=== PATIENT | female | born 1950 | race Caucasian/White ===

== ENCOUNTER → 2017-01-13 | Outpatient (CLI) | payer MEDICARE ==
--- NOTE | 2017-01-13 11:49 | MM ---
Reason for exam: additional evaluation requested from prior study. Last mammogram was performed 1 year ago. History: Patient is postmenopausal, has history of breast cancer at age 49, and had first child at age 31. Family history of breast cancer in maternal aunt. Malignant excisional biopsy of the left breast, January 23, 1999. Malignant excisional biopsy of the right breast, January 23, 1999. Mastectomy of both breasts, 1998. TRAM Reconstruction, 1998. Excisional biopsy of the right breast. Chemotherapy. Taking antineoplastic for 5 years 8 months beginning at age 51. Took other hormone for 5 years beginning at age 50. Physical Findings: Nurse did not find any significant physical abnormalities on exam. MG 3D Diag Mammo W/Cad TRINA Bilateral CC and MLO view(s) were taken. Prior study comparison: January 12, 2016, bilateral MG 3d diag mammo w/cad TRINA. December 25, 2014, bilateral MG diagnostic mammo w CAD TRINA. The breast tissue is almost entirely fat. There is no discrete abnormality. No significant new findings when compared with previous films. ASSESSMENT: Negative, BI-RAD 1 RECOMMENDATION: Follow-up diagnostic mammogram of both breasts in 1 year.
== END | disposition home or self-care (01) ==
LOC: RADMAMWWP 11:03
PROVIDERS: ATTEND Internal Medicine Hematology & Oncology
DX: Z85.3 Personal history of malignant neoplasm of breast (principal)
CPT/HCPCS: G0204; G0279

== ENCOUNTER 2017-07-13 08:41 | Day surgery (SDC) | payer MEDICARE ==
[2017-07-11 10:34] VITALS: BMI 31.8
[~2017-07-13 08:41] MED LIST: LACTATED RINGERS 1,000 ML IV SCH; LIDOCAINE 1% 20 ML VIAL (10MG/ML) FOR IV START INTRADERMA PRN
[2017-07-13 09:04] VITALS: TEMP 97.7
[2017-07-13] MEDS ORDERED: LIDOCAINE 1% INJ 10MG/ML (20 ML MDV) ONE (09:21)
[2017-07-13] MEDS ORDERED: PROPOFOL 10 MG/ML 20 ML VIAL IV ONE (09:21)
--- NOTE | 2017-07-13 09:41 | P.PCN ---
Date of Procedure: 07/13/17 Procedure(s) Performed: BRIEF HISTORY: Patient is a 67-year-old, pleasant, white female, scheduled for an upper endoscopy as a part of evaluation of intermittent dysphagia to solids for the last 1 year duration. She often has food getting stuck in the throat area that happens once every 2-3 months. She does have GERD and his symptoms occasionally.. PROCEDURE PERFORMED: Esophagogastroduodenoscopy with biopsy and dilation PREOPERATIVE DIAGNOSIS: Intermittent dysphagia to solids of 1 year duration. IV sedation per anesthesia. PROCEDURE: After informed consent was obtained, the patient was brought into the endoscopy unit. IV sedation was administered by Anesthesia under continuous monitoring. Initially the Olympus GIF-140 video endoscope was inserted into the mouth. Esophagus intubated without any difficulty. It was gradually advanced into the stomach and duodenum and carefully examined. The bulb and the second part of the duodenum appeared normal. The scope at this time was withdrawn to the stomach, adequately insufflated with air, and upon careful examination, mucosa of the antrum,patchy areas of erythema and biopsies were done from this area. The body, cardia and the fundus appeared normal. The scope was then withdrawn into the esophagus. The GE junction was located at 39 cm from the incisors. small sliding Hiatal hernia noted. there was a distal esophageal Schatzki's ring identified which was widely patent and this was dilated using 18 -20 mm balloon in sequential fashion for 90 seconds. There were 2 small polyps measuring 5 mm in size at the GE junction that was biopsied. 2 superficial erosions noted at the GE junction consistent with LA grade B reflux esophagitis.The rest of theesophagus appeared normal.and the patient tolerated the procedure well. IMPRESSION: 1. Distal esophageal Schatzki's ring status post balloon dilation using 18-20 mm TTS balloon as described above. 2. 2 small GE junction polyps status post biopsy, and LA grade B reflux esophagitis. 3. Mild antral gastritis RECOMMENDATIONS: The findings of this examination were discussed with the patient as well as her family. She was advised to remain on clear liquid diet for lunch today. She'll be started on Prilosec 20 mg daily for 8 weeks. She' ll be seen in the office in 2 months.
[2017-07-13 09:56] VITALS: RESP 18
[2017-07-13 10:09] VITALS: BP 103/70; PULSE 65
== END 2017-07-13 10:38 | disposition home or self-care (01) ==
LOC: ORWHC2ENDO 08:41
PROVIDERS: ATTEND Internal Medicine Gastroenterology
DX: K22.2 Esophageal obstruction (principal); K29.60 Other gastritis without bleeding; K21.0 Gastro-esophageal reflux disease with esophagitis; K44.9 Diaphragmatic hernia without obstruction or gangrene; I10 Essential (primary) hypertension; E78.5 Hyperlipidemia, unspecified; Z79.899 Other long term (current) drug therapy; Z88.1 Allergy status to other antibiotic agents
CPT/HCPCS: 88305; 88342; 43239; 43249; J2001; J2704; C1726

== ENCOUNTER → 2018-01-26 | Outpatient (CLI) | payer MEDICARE ==
--- NOTE | 2018-01-26 14:34 | MM ---
Reason for exam: additional evaluation requested from prior study. Last mammogram was performed 1 year ago. History: Patient is postmenopausal, has history of breast cancer at age 49, and had first child at age 31. Family history of breast cancer in maternal aunt. Malignant excisional biopsy of the left breast, January 23, 1999. Malignant excisional biopsy of the right breast, January 23, 1999. Mastectomy of both breasts, 1998. TRAM Reconstruction, 1998. Excisional biopsy of the right breast. Chemotherapy. Taking antineoplastic for 5 years 8 months beginning at age 51. Took other hormone for 5 years beginning at age 50. Physical Findings: Nurse did not find any significant physical abnormalities on exam. MG 3D Diag Mammo W/Cad TRINA Bilateral CC and MLO view(s) were taken. Prior study comparison: January 13, 2017, bilateral MG 3d diag mammo w/cad TRINA. January 12, 2016, bilateral MG 3d diag mammo w/cad TRINA. The breast tissue is almost entirely fat. No descrete abnormality. No significant new findings when compared with previous films. These results were verbally communicated with the patient and result sheet given to the patient on 01/26/18. ASSESSMENT: Negative, BI-RAD 1 RECOMMENDATION: Follow-up diagnostic mammogram of both breasts in 1 year.
== END | disposition home or self-care (01) ==
LOC: RADMAMWWP 10:34
PROVIDERS: ATTEND Internal Medicine Hematology & Oncology
DX: Z08 Encounter for follow-up examination after completed treatment for malignant neoplasm (principal); Z85.3 Personal history of malignant neoplasm of breast
CPT/HCPCS: 77066; G0279; 77062

== ENCOUNTER → 2018-04-11 | Outpatient (CLI) | payer MEDICARE ==
[2018-04-11 13:51] LABS: Albumin 4.3 g/dL (3.5-5.0); Calcium 9.6 mg/dL (8.4-10.2); Potassium 4.7 mmol/L (3.5-5.1); Total Bilirubin 1.7 mg/dL (0.2-1.3); Total Protein 7.1 g/dL (6.3-8.2)
[2018-04-11 14:26] LABS: Basophils # (A) 0.1 k/uL (0-0.2); Basophils % (A) 1 %; Eosinophils # (A) 0.1 k/uL (0-0.7); Eosinophils % (A) 3 %; HCT 41.5 % (34.0-46.0); HGB 13.7 gm/dL (11.4-16.0); Lymphocytes # (A) 0.9 k/uL (1.0-4.8); Lymphocytes % (A) 21 %; MCH 30.5 pg (25.0-35.0); MCV 92.5 fL (80.0-100.0); Mean Platelet Volume 7.1; Monocytes # (A) 0.2 k/uL (0-1.0); Monocytes % (A) 5 %; Neutrophils % (A) 67 %; Platelet Count 219 k/uL (150-450); RBC 4.49 m/uL (3.80-5.40); RDW 13.7 % (11.5-15.5); WBC 4.5 k/uL (3.8-10.6)
== END | disposition home or self-care (01) ==
LOC: LABWHC1 12:08
PROVIDERS: ATTEND Family Medicine
DX: E78.5 Hyperlipidemia, unspecified (principal); I10 Essential (primary) hypertension; E21.5 Disorder of parathyroid gland, unspecified; Z11.59 Encounter for screening for other viral diseases
CPT/HCPCS: 36415; 80053; 80061; 84443; 85025; 86803

== ENCOUNTER → 2018-07-06 | Outpatient (CLI) | payer MEDICARE ==
[2018-07-06 17:23] LABS: Anion Gap 9.5 mmol/L (4.00-12.00); Calcium 9.7 mg/dL (8.7-10.3); Carbon Dioxide 23.5 mmol/L (21.6-31.8); Potassium 4.4 mmol/L (3.5-5.5)
== END | disposition home or self-care (01) ==
LOC: LABWHC1 11:21
PROVIDERS: ATTEND Family Medicine
DX: I10 Essential (primary) hypertension (principal)
CPT/HCPCS: 36415; 80048

== ENCOUNTER → 2019-01-09 | Outpatient (CLI) | payer MEDICARE ==
[2019-01-09 12:28] LABS: Basophils # (A) 0.1 k/uL (0-0.2); Basophils % (A) 1 %; Eosinophils # (A) 0.1 k/uL (0-0.7); Eosinophils % (A) 2 %; HCT 39.8 % (34.0-46.0); HGB 13.1 gm/dL (11.4-16.0); Lymphocytes # (A) 1.2 k/uL (1.0-4.8); Lymphocytes % (A) 19 %; MCH 30.1 pg (25.0-35.0); MCHC 32.9 g/dL (31.0-37.0); MCV 91.3 fL (80.0-100.0); Monocytes # (A) 0.3 k/uL (0-1.0); Monocytes % (A) 5 %; Neutrophils # (A) 4.7 k/uL (1.3-7.7); Neutrophils % (A) 72 %; Platelet Count 252 k/uL (150-450); RBC 4.36 m/uL (3.80-5.40); RDW 12.8 % (11.5-15.5); WBC 6.6 k/uL (3.8-10.6)
[2019-01-09 18:31] LABS: African American GFR (CKD) 48.8 (60.0-200.0); Albumin 4.8 g/dL (3.80-4.90); Albumin/Globulin Ratio 2.53 (1.60-3.17); Anion Gap 9.8 mmol/L (4.00-12.00); BUN/Creat Ratio 25.38 Ratio (12.00-20.00); Calcium 10.6 mg/dL (8.7-10.3); Carbon Dioxide 22.2 mmol/L (21.6-31.8); Globulin 1.9 g/dL (1.6-3.3); LDL Cholesterol,Calculated 62.8 mg/dL (0.0-131.0); Potassium 4.7 mmol/L (3.5-5.5); Total Bilirubin 1.2 mg/dL (0.2-1.2); Total Protein 6.7 g/dL (6.2-8.2); VLDL Calculation 40.2 mg/dL (5.00-40.00)
== END | disposition home or self-care (01) ==
LOC: LABWHC1 11:35
PROVIDERS: ATTEND Family Medicine
DX: I10 Essential (primary) hypertension (principal)
CPT/HCPCS: 36415; 80053; 80061; 84443; 85025

== ENCOUNTER → 2019-02-16 | Outpatient (CLI) | payer MEDICARE | END | disposition home or self-care (01) | LOC: LABWHC1 14:09 | PROVIDERS: ATTEND Family Medicine | DX: E21.3 Hyperparathyroidism, unspecified (principal) | CPT/HCPCS: 36415; 82330; 83970 ==

== ENCOUNTER → 2019-02-19 | Outpatient (CLI) | payer MEDICARE ==
--- NOTE | 2019-02-19 14:15 | MM ---
Reason for exam: additional evaluation requested from prior study. Last mammogram was performed 1 year and 1 month ago. History: Patient is postmenopausal, has history of breast cancer at age 49, and had first child at age 31. Family history of breast cancer in maternal aunt. Malignant excisional biopsy of the left breast, January 23, 1999. Malignant excisional biopsy of the right breast, January 23, 1999. Mastectomy of both breasts, 1998. TRAM Reconstruction, 1998. Excisional biopsy of the right breast. Chemotherapy. Taking antineoplastic for 5 years 8 months beginning at age 51. Took other hormone for 5 years beginning at age 50. Physical Findings: Nurse did not find any significant physical abnormalities on exam. MG 3D Diag Mammo W/Cad TRINA Bilateral CC and MLO view(s) were taken. Prior study comparison: January 26, 2018, bilateral MG 3d diag mammo w/cad TRINA. January 13, 2017, bilateral MG 3d diag mammo w/cad TRINA. The breast tissue is almost entirely fat. No suspicious abnormality. These results were verbally communicated with the patient and result sheet given to the patient on 02/19/19. ASSESSMENT: Negative, BI-RAD 1 RECOMMENDATION: Routine screening mammogram of both breasts in 1 year.
== END ==
LOC: RADMAMWWP 12:58
PROVIDERS: ATTEND Internal Medicine Hematology & Oncology
DX: Z08 Encounter for follow-up examination after completed treatment for malignant neoplasm (principal); Z85.3 Personal history of malignant neoplasm of breast
CPT/HCPCS: 77066; G0279; 77062

== ENCOUNTER → 2019-03-05 | Outpatient (CLI) | payer MEDICARE | END | disposition home or self-care (01) | LOC: LABWHC1 14:36 | PROVIDERS: ATTEND Family Medicine | DX: E21.3 Hyperparathyroidism, unspecified (principal) | CPT/HCPCS: 36415; 82330; 83970 ==

== ENCOUNTER → 2019-03-29 | Outpatient (CLI) | payer MEDICARE ==
[2019-03-29 15:56] LABS: Ionized Calcium 5.4 mg/dL (4.5-5.3)
[2019-03-30 01:48] LABS: Calcium 9.6 mg/dL (8.7-10.3)
== END | disposition home or self-care (01) ==
LOC: LABWHC1 15:11
PROVIDERS: ATTEND Family Medicine
DX: E83.52 Hypercalcemia (principal)
CPT/HCPCS: 36415; 82306; 82310; 82330

== ENCOUNTER → 2019-07-27 | Outpatient (CLI) | payer MEDICARE ==
--- NOTE | 2019-07-29 22:13 | US ---
EXAMINATION TYPE: US pelvis complete transvag DATE OF EXAM: 07/27/2019 COMPARISON: NONE CLINICAL HISTORY: 69-year-old female D25.9. Possible calcified uterine leiomyoma TECHNIQUE: Transvaginal (TV) and Transabdominal (TA) . Transabdominal sonographic images of the pel vis were acquired. Transvaginal sonographic images were medically necessary to better assess the fol lowing anatomy: endometrium and ovaries Date of LMP: unknown EXAM MEASUREMENTS: Uterus: 8.0 x 4.7 x 6.3 cm Endometrial Stripe: 1.0 cm Right Ovary: unable to visualize Left Ovary: unable to visualize 1. Uterus: Anteverted. Possible calcified fibroid = 4.5 x 2.3 x 3.6cm filling the right uterine f undus and partially obscuring the endometrial stripe. 2. Endometrium: The visualized portion of the stripe appears thickened to 1 cm. 3. Right Ovary: Obscured by overlying bowel gas 4. Left Ovary: Obscured by overlying bowel gas 5. Bilateral Adnexa: appears wnl 6. Posterior cul-de-sac: wnl IMPRESSION: 1. Large calcified mass filling the right uterine fundus measuring up to 4.5 cm, partially obscuring the endometrial stripe. Consider female pelvic MRI to better evaluate. 2. MRI can also assess the zonal anatomy for potential abnormal endometrial thickening of 1 cm. Diffe rential considerations include endometrial hyperplasia, polyps, and carcinoma. 3. Neither ovary could be visualized.
== END | disposition home or self-care (01) ==
LOC: RADUSMAIN 13:28
PROVIDERS: ATTEND Family Medicine
DX: D25.9 Leiomyoma of uterus, unspecified (principal)
CPT/HCPCS: 76830; 76856

== ENCOUNTER → 2019-11-28 | Outpatient (CLI) | payer MEDICARE ==
[2019-11-28 12:20] LABS: Basophils # (A) 0.1 k/uL (0-0.2); Basophils % (A) 1 %; Eosinophils # (A) 0.1 k/uL (0-0.7); Eosinophils % (A) 2 %; HCT 37.2 % (34.0-46.0); HGB 12.2 gm/dL (11.4-16.0); Lymphocytes # (A) 1.5 k/uL (1.0-4.8); Lymphocytes % (A) 24 %; MCH 30.7 pg (25.0-35.0); MCHC 32.8 g/dL (31.0-37.0); MCV 93.7 fL (80.0-100.0); Mean Platelet Volume 7.7; Monocytes # (A) 0.3 k/uL (0-1.0); Monocytes % (A) 6 %; Neutrophils # (A) 4.1 k/uL (1.3-7.7); Neutrophils % (A) 66 %; Platelet Count 250 k/uL (150-450); RBC 3.97 m/uL (3.80-5.40); RDW 13.5 % (11.5-15.5); WBC 6.1 k/uL (3.8-10.6)
== END | disposition home or self-care (01) ==
LOC: LABPAT 11:09
PROVIDERS: ATTEND Obstetrics & Gynecology Obstetrics
DX: Z01.818 Encounter for other preprocedural examination (principal); R93.89 Abnormal findings on diagnostic imaging of other specified body structures
CPT/HCPCS: 36415; 85025; 93005

== ENCOUNTER → 2019-11-30 | Outpatient (CLI) | payer MEDICARE | END | disposition home or self-care (01) | LOC: LABWHC1 09:43 | PROVIDERS: ATTEND Obstetrics & Gynecology Obstetrics | DX: Z11.59 Encounter for screening for other viral diseases (principal) ==

== ENCOUNTER 2019-12-04 09:55 | Day surgery (SDC) | payer MEDICARE ==
[2019-11-30 15:26] VITALS: BMI 30.2
[~2019-12-04 09:55] MED LIST changes: +DEXAMETHASONE SOD PHOSPHATE 10 MG/ML 1 ML VIAL IV ONE; +HYDROmorphone 0.5 MG/0.5 ML SYRINGE IVP PRN; +LIDOCAINE 1% (10MG/ML) FOR IV START INTRADERMA PRN; -LIDOCAINE 1% 20 ML VIAL (10MG/ML) FOR IV START INTRADERMA PRN; +MIDAZOLAM 2 MG/2 ML VIAL IV PRN; +ONDANSETRON 4 MG/2 ML VIAL IVP ONE; +Pre Op ABX Message 1 EACH MISC MISCELLANE ONE
[2019-12-04] MEDS ORDERED: SUCCINYLCHOLINE CHLORIDE 100 MG/5 ML SYR IV ONE (10:54)
[2019-12-04] MEDS ORDERED: PROPOFOL 10 MG/ML 20 ML VIAL IV ONE (10:54)
[2019-12-04] MEDS ORDERED: fentaNYL (PF) 50 MCG/ML 2 ML AMP ONE (10:54)
[2019-12-04] MEDS ORDERED: KETOROLAC 30 MG/ML 1 ML VIAL ONE (10:54)
[2019-12-04] MEDS ORDERED: MIDAZOLAM 2 MG/2 ML VIAL ONE (10:54)
[2019-12-04] MEDS ORDERED: SILVER NITRATE APPLICATOR 1 EACH STICK..EA. TOPICAL ONE (11:21)
--- NOTE | 2019-12-04 11:35 | P.OP ---
Date of Procedure: 12/04/19 Preoperative Diagnosis: Thickened endometrium Postoperative Diagnosis: Same Procedure(s) Performed: Hysteroscopy, dilation and curettage Anesthesia: ODESSA Surgeon: Preethi Sanabria Estimated Blood Loss (ml): 5 IV fluids (ml): 400 Urine output (ml): 50 Pathology: other (Endometrial curettings) Condition: stable Disposition: PACU Indications for Procedure: Thickened endometrium on ultrasound, prior history of postmenopausal bleeding Operative Findings: Endometrial lining with noted calcifications, question will polyp. Description of Procedure: Patient was seen in the preoperative area and informed consent was obtained. Patient was taken back to the operating suite were general anesthesia was obtained without difficulty by the anesthesia department. She was prepped and draped in the normal sterile fashion in the dorsal lithotomy position. I [place] catheter was used to drain the bladder clear yellow urine. Weighted speculum posterior vaginal vault the interval of the cervix is visualized and grasped with a single-tooth tenaculum. Endocervical canal was then dilated. This was placed through the cervix and toward the and Maggie cavity. Endometrial cavity was noted to be intact, and multiple OCCASIONS were noted and a question will polyp was appreciated. Multiple pictures were taken and hysteroscope was removed. Sharp curettage was then performed until gritty texture was noted in all 4 quadrants of the endometrial cavity. Moderate amount of tissue was obtained. At this time the specimen was passed off and sent to pathology. The cecal tooth tenaculum was taken off the anterior lip of the cervix. Hemostasis was appreciated. All inserts removed from the patient's vaginal vault. All counts were noted to be correct 2 at the end of the procedure Patient tolerated procedure well was taken the recovery room awake in stable condition.
[2019-12-04 11:38] VITALS: TEMP 96.8
[2019-12-04 12:23] VITALS: PULSE 69; RESP 16
[2019-12-04 12:25] VITALS: BP 92/63
== END 2019-12-04 12:49 | disposition home or self-care (01) ==
LOC: OR 09:55
PROVIDERS: ATTEND Obstetrics & Gynecology Obstetrics
DX: R93.89 Abnormal findings on diagnostic imaging of other specified body structures (principal); N85.8 Other specified noninflammatory disorders of uterus; R94.31 Abnormal electrocardiogram [ECG] [EKG]; I10 Essential (primary) hypertension; E78.5 Hyperlipidemia, unspecified; G47.00 Insomnia, unspecified; D25.9 Leiomyoma of uterus, unspecified; E89.2 Postprocedural hypoparathyroidism; K21.9 Gastro-esophageal reflux disease without esophagitis; I49.1 Atrial premature depolarization; Z87.42 Personal history of other diseases of the female genital tract; Z88.1 Allergy status to other antibiotic agents; Z88.8 Allergy status to other drugs, medicaments and biological substances; Z85.3 Personal history of malignant neoplasm of breast; Z87.09 Personal history of other diseases of the respiratory system; Z87.19 Personal history of other diseases of the digestive system; Z98.890 Other specified postprocedural states; Z98.49 Cataract extraction status, unspecified eye; Z90.13 Acquired absence of bilateral breasts and nipples; Z87.39 Personal history of other diseases of the musculoskeletal system and connective tissue; Z79.899 Other long term (current) drug therapy; Z78.0 Asymptomatic menopausal state; Z91.89 Other specified personal risk factors, not elsewhere classified; Z83.438 Family history of other disorder of lipoprotein metabolism and other lipidemia; Z82.49 Family history of ischemic heart disease and other diseases of the circulatory system; Z81.8 Family history of other mental and behavioral disorders; Z80.0 Family history of malignant neoplasm of digestive organs
CPT/HCPCS: 88305; 58558; J2250; J1100; J2405; J3010; J1885; J0330; J2704

== ENCOUNTER 2019-12-11 09:44 | Day surgery (SDC) | payer MEDICARE ==
[2019-12-06 15:12] VITALS: BMI 30.4
[~2019-12-11 09:44] MED LIST changes: -DEXAMETHASONE SOD PHOSPHATE 10 MG/ML 1 ML VIAL IV ONE; -HYDROmorphone 0.5 MG/0.5 ML SYRINGE IVP PRN; -LIDOCAINE 1% (10MG/ML) FOR IV START INTRADERMA PRN; -MIDAZOLAM 2 MG/2 ML VIAL IV PRN; -ONDANSETRON 4 MG/2 ML VIAL IVP ONE; -Pre Op ABX Message 1 EACH MISC MISCELLANE ONE
[2019-12-11 10:26] VITALS: TEMP 95.5
[2019-12-11] MEDS ORDERED: LIDOCAINE 1% (10MG/ML) FOR IV START INTRADERMA ONE (10:34)
[2019-12-11] MEDS ORDERED: PROPOFOL 10 MG/ML 20 ML VIAL IV ONE (10:51)
--- NOTE | 2019-12-11 10:55 | P.GSHP ---
History of Present Illness H&P Date: 12/11/19 Chief Complaint: Colon cancer screening 69-year-old female here for screening colonoscopy. Patient has a personal history of colon polyps. Last colonoscopy over 5 years ago. Mother with history of colon cancer. No bowel complaints. Past Medical History Past Medical History: Cancer, GERD/Reflux, Hyperlipidemia, Hypertension Additional Past Medical History / Comment(s): BREAST CANCER WITH CHEMO (1998), HX OF COLON POLYPS , DIVERTICULOSIS, FIBROID ON UTERUS, ENDOMETRIUM POLYP. History of Any Multi-Drug Resistant Organisms: None Reported Past Surgical History: Breast Surgery Additional Past Surgical History / Comment(s): TRINA MASTECTOMY, BREAST RECONSTRUCTION, PARATHYROID SX, COLONOSCOPY, CATARACTS TRINA. D & C WITH HYSTEROSCOPY(12/04/19) Past Anesthesia/Blood Transfusion Reactions: Postoperative Nausea & Vomiting (PONV) Past Psychological History: No Psychological Hx Reported Smoking Status: Never smoker Past Alcohol Use History: Occasional Past Drug Use History: None Reported - Past Family History Mother Family Medical History: No Reported History Sister(s) Family Medical History: Myocardial Infarction ([place]) Medications and Allergies Home Medications Medication Instructions Recorded Confirmed Type Benazepril [Lotensin] 10 mg PO BID 03/29/14 12/11/19 History Simvastatin [Zocor] 20 mg PO HS 03/29/14 12/11/19 History Omeprazole [PriLOSEC] 20 mg PO AC-SUPPER 11/30/19 12/11/19 History Spironolactone [Aldactone] 100 mg PO DAILY 11/30/19 12/11/19 History Allergies Allergy/AdvReac Type Severity Reaction Status Date / Time nitrofurantoin Allergy Unknown Rash/Hives Verified 12/06/19 14:43 macrocrystalline [From Macrodantin] MYCIN ANTIBIOTIC Allergy Unknown Unknown Uncoded 12/06/19 14:43 Childhood Surgical - Exam Vital Signs Temp Pulse Resp BP Pulse Ox 95.5 F L 85 16 134/64 98 12/11/19 10:17 12/11/19 10:17 12/11/19 10:17 12/11/19 10:17 12/11/19 10:17 Physical exam: General: Well-developed, well-nourished HEENT: Normocephalic, sclerae nonicteric Abdomen: Nontender, nondistended Extremities: No edema Neuro: Alert and oriented Assessment and Plan (1) Colon cancer screening Narrative/Plan: Will proceed with colonoscopy at this time Current Visit: Yes Status: Acute Code(s): Z12.11 - ENCOUNTER FOR SCREENING FOR MALIGNANT NEOPLASM OF COLON SNOMED Code(s): 106996908
--- NOTE | 2019-12-11 11:13 | P.PCN ---
Date of Procedure: 12/11/19 Procedure(s) Performed: PREOPERATIVE DIAGNOSIS: Colon cancer screening, history of polyps, family history of colon cancer POSTOPERATIVE DIAGNOSIS: Multiple polyps, diverticulosis PROCEDURE: Colonoscopy with snare polypectomy ANESTHESIA: MAC SURGEON: Geoff Corea M.D. SPECIMENS: Polyps ENDOSCOPIC PROCEDURE: The patient was placed on the endoscopy table in the left decubitus position. The Olympus colonoscope was inserted into the anus and passed under direct visualization to the base of the cecum. The appendiceal orifice was visualized. From that point the scope was slowly withdrawn inspecting all surfaces carefully. There were no neoplastic inflammatory or polypoid lesions throughout the cecum. In the ascending colon a polyp was seen and removed using the snare with cautery technique. In the transverse colon 2 polyps were seen and removed in a similar fashion. In the descending colon a single polyp was seen and removed in a similar fashion. The remainder of the descending sigmoid and rectum appeared normal. There was diverticulosis involving the left colon. Digital rectal examination was normal. The patient was taken to the recovery room in stable condition per anesthesia guidelines. RECOMMENDATIONS: Await biopsy results. Follow-up colonoscopy 3-5 years given the numerous polyps.
[2019-12-11 11:26] VITALS: RESP 16
[2019-12-11 11:50] VITALS: BP 108/65; PULSE 70
== END 2019-12-11 11:59 | disposition home or self-care (01) ==
LOC: ORWHC2ENDO 09:44
PROVIDERS: ATTEND Surgery
DX: Z12.11 Encounter for screening for malignant neoplasm of colon (principal); D12.3 Benign neoplasm of transverse colon; D12.4 Benign neoplasm of descending colon; K63.5 Polyp of colon; K57.30 Diverticulosis of large intestine without perforation or abscess without bleeding; Z86.010 Personal history of colon polyps; Z80.0 Family history of malignant neoplasm of digestive organs; I10 Essential (primary) hypertension; E78.5 Hyperlipidemia, unspecified; K21.9 Gastro-esophageal reflux disease without esophagitis; Z79.899 Other long term (current) drug therapy; Z88.1 Allergy status to other antibiotic agents; Z85.3 Personal history of malignant neoplasm of breast; Z90.13 Acquired absence of bilateral breasts and nipples; Z98.41 Cataract extraction status, right eye; Z98.42 Cataract extraction status, left eye; Z98.890 Other specified postprocedural states; Z92.21 Personal history of antineoplastic chemotherapy; Z86.018 Personal history of other benign neoplasm; Z82.49 Family history of ischemic heart disease and other diseases of the circulatory system
CPT/HCPCS: 88305; 45385; J2704

== ENCOUNTER → 2020-05-01 | Outpatient (CLI) | payer MEDICARE ==
--- NOTE | 2020-05-01 12:29 | MM ---
Reason for exam: additional evaluation requested from prior study. Last mammogram was performed 1 year and 2 months ago. History: Patient is postmenopausal, has history of breast cancer at age 49, and had first child at age 31. Family history of breast cancer in maternal aunt at age 60. Malignant excisional biopsy of the left breast, January 23, 1999. Malignant excisional biopsy of the right breast, January 23, 1999. Mastectomy of both breasts, 1998. TRAM Reconstruction, 1998. Excisional biopsy of the right breast. Chemotherapy. Taking antineoplastic for 5 years 8 months beginning at age 51. Took other hormone for 5 years beginning at age 50. Physical Findings: Nurse did not find any significant physical abnormalities on exam. MG 3D Diag Mammo W/Cad TRINA Bilateral CC and MLO view(s) were taken. Prior study comparison: February 19, 2019, bilateral MG 3d diag mammo w/cad TRINA. January 26, 2018, bilateral MG 3d diag mammo w/cad TRINA. The breast tissue is almost entirely fat. No significant new findings when compared with previous films. These results were verbally communicated with the patient and result sheet given to the patient on 05/01/20. ASSESSMENT: Benign, BI-RAD 2 RECOMMENDATION: Follow-up diagnostic mammogram of both breasts in 1 year.
== END | disposition home or self-care (01) ==
LOC: RADMAMWWP 10:52
PROVIDERS: ATTEND Internal Medicine Hematology & Oncology
DX: Z08 Encounter for follow-up examination after completed treatment for malignant neoplasm (principal); Z85.3 Personal history of malignant neoplasm of breast
CPT/HCPCS: 77066; G0279; 77062

== ENCOUNTER → 2020-11-05 | Outpatient (CLI) | payer MEDICARE ==
[2020-11-05 20:14] LABS: Basophils # (A) 0.07 X 10*3/uL (0.00-0.10); Basophils % (A) 1.3 %; Eosinophils # (A) 0.13 X 10*3/uL (0.04-0.35); Eosinophils % (A) 2.4 %; HCT 35.9 % (37.2-46.3); HGB 11.7 g/dL (12.0-15.0); Lymphocytes # (A) 1.23 X 10*3/uL (0.90-5.00); Lymphocytes % (A) 22.7 %; MCH 30.5 pg (27.0-32.0); MCHC 32.6 g/dL (32.0-37.0); MCV 93.7 fL (80.0-97.0); Mean Platelet Volume 10.8 fL (9.5-12.2); Monocytes # (A) 0.37 X 10*3/uL (0.20-1.00); Monocytes % (A) 6.8 %; Neutrophils # (A) 3.57 X 10*3/uL (1.80-7.70); Neutrophils % (A) 65.9 %; Platelet Count 212 X 10*3/uL (140-440); RBC 3.83 X 10*6/uL (4.10-5.20); RDW 13.1 % (11.5-14.5); WBC 5.42 X 10*3/uL (4.50-10.00)
[2020-11-05 22:41] LABS: African American GFR (CKD) 40.5 (60.0-200.0); Albumin 4.7 g/dL (3.80-4.90); Albumin/Globulin Ratio 2.35 (1.60-3.17); Anion Gap 10.9 mmol/L (4.00-12.00); Carbon Dioxide 21.1 mmol/L (21.6-31.8); Chol/HDL Ratio 3.76; LDL Cholesterol,Calculated 68.2 mg/dL (0.0-131.0); Non-African American GFR(CKD) 34.9 (60.0-200.0); Potassium 5.6 mmol/L (3.5-5.5); Total Protein 6.7 g/dL (6.2-8.2); VLDL Calculation 47.8 mg/dL (5.00-40.00)
== END | disposition home or self-care (01) ==
LOC: LABWHC1 12:44
PROVIDERS: ATTEND Family Medicine
DX: E78.5 Hyperlipidemia, unspecified (principal); E21.5 Disorder of parathyroid gland, unspecified
CPT/HCPCS: 36415; 80053; 80061; 84443; 85025

== ENCOUNTER → 2020-11-14 | Outpatient (CLI) | payer MEDICARE ==
--- NOTE | 2020-11-19 10:24 | ECHOF ---
Referral Reason:R01.1 cardiac murmur MEASUREMENTS -------- HEIGHT: 160.0 cm WEIGHT: 78.0 kg BP: RVIDd: 3.2 cm (< 3.3) IVSd: 1.4 cm (0.6 - 1.1) LVIDd: 3.9 cm (3.9 - 5.3) LVPWd: 1.2 cm (0.6 - 1.1) IVSs: 1.6 cm LVIDs: 2.2 cm LVPWs: 1.5 cm LAESV Index (A-L): 27.58 ml/m Ao Diam: 3.2 cm (2.0 - 3.7) AV Cusp: 1.4 cm (1.5 - 2.6) MV EXCURSION: 21.910 mm (> 18.000) MV EF SLOPE: 78 mm/s (70 - 150) EPSS: 1.4 cm MV E Lucien: 0.73 m/s MV DecT: 241 ms MV A Lucien: 1.01 m/s MV E/A Ratio: 0.72 RAP: 5.00 mmHg RVSP: 23.20 mmHg FINDINGS -------- Sinus rhythm. This was a technically adequate study. The left ventricular size is normal. There is moderate concentric left ventricular hypertrophy. O verall left ventricular systolic function is normal with, an EF between 55 - 60 %. The right ventricle is normal in size. Normal LA size by volume 22+/-6 ml/m2. The right atrial size is normal. Interatrial and interventricular septum intact. The aortic valve is trileaflet and appears structurally normal. There is mild aortic valve sclerosi s. There is no evidence of aortic regurgitation. There is no evidence of aortic stenosis. Mild mitral annular calcification present. [id number] mitral regurgitation is present. Swati ot exclude mitral valve prolapse. Mild tricuspid regurgitation present. There is no evidence of pulmonary hypertension. The right v entricular systolic pressure, as measured by Doppler, is 23.20mmHg. There is no pulmonic regurgitation present. The aortic root size is normal. Normal inferior vena cava with normal inspiratory collapse consistent with estimated right atrial pre ssure of 5 mmHg. There is no pericardial effusion. CONCLUSIONS -------- 1. The left ventricular size is normal. 2. There is moderate concentric left ventricular hypertrophy. 3. Overall left ventricular systolic function is normal with, an EF between 55 - 60 %. 4. There is mild aortic valve sclerosis. 5. Mild mitral annular calcification present. 6. Wztw-bz-cschyxko mitral regurgitation is present. 7. Cannot exclude mitral valve prolapse. 8. Mild tricuspid regurgitation present. HOUSING COURT JUDGE: Cesia Reed RDCS
== END | disposition home or self-care (01) ==
LOC: RADECHMAIN 12:05
PROVIDERS: ATTEND Family Medicine
DX: I08.1 Rheumatic disorders of both mitral and tricuspid valves (principal)
CPT/HCPCS: 93306

== ENCOUNTER → 2021-02-09 | Outpatient (CLI) | payer MEDICARE ==
[2021-02-09 19:03] LABS: Basophils # (A) 0.07 X 10*3/uL (0.00-0.10); Basophils % (A) 0.9 %; Eosinophils # (A) 0.07 X 10*3/uL (0.04-0.35); Eosinophils % (A) 0.9 %; HGB 11.8 g/dL (12.0-15.0); Lymphocytes # (A) 1.44 X 10*3/uL (0.90-5.00); Lymphocytes % (A) 18.9 %; MCH 29.9 pg (27.0-32.0); MCHC 31.9 g/dL (32.0-37.0); MCV 93.9 fL (80.0-97.0); Mean Platelet Volume 10.6 fL (9.5-12.2); Monocytes # (A) 0.45 X 10*3/uL (0.20-1.00); Monocytes % (A) 5.9 %; Neutrophils # (A) 5.54 X 10*3/uL (1.80-7.70); Neutrophils % (A) 72.9 %; Platelet Count 271 X 10*3/uL (140-440); RBC 3.94 X 10*6/uL (4.10-5.20); RDW 12.9 % (11.5-14.5); WBC 7.61 X 10*3/uL (4.50-10.00)
[2021-02-09 20:58] LABS: African American GFR (CKD) 37.2 (60.0-200.0); Albumin 4.8 g/dL (3.80-4.90); Albumin/Globulin Ratio 2.18 (1.60-3.17); Anion Gap 10.9 mmol/L (4.00-12.00); BUN/Creat Ratio 31.88 Ratio (12.00-20.00); Calcium 9.8 mg/dL (8.7-10.3); Carbon Dioxide 16.1 mmol/L (21.6-31.8); Chol/HDL Ratio 3.54; Globulin 2.2 g/dL (1.6-3.3); LDL Cholesterol,Calculated 53.2 mg/dL (0.0-131.0); Non-African American GFR(CKD) 32.1 (60.0-200.0); Potassium 5.1 mmol/L (3.5-5.5); VLDL Calculation 40.8 mg/dL (5.00-40.00)
== END | disposition home or self-care (01) ==
LOC: LABWHC1 11:24
PROVIDERS: ATTEND Family Medicine
DX: E78.5 Hyperlipidemia, unspecified (principal); I10 Essential (primary) hypertension; G47.00 Insomnia, unspecified
CPT/HCPCS: 36415; 80053; 80061; 84443; 85025

== ENCOUNTER → 2021-04-01 | Outpatient (CLI) | payer MEDICARE ==
[2021-04-01 15:04] LABS: Basophils # (A) 0.1 k/uL (0-0.2); Basophils % (A) 1 %; Eosinophils # (A) 0.1 k/uL (0-0.7); Eosinophils % (A) 2 %; HCT 35.6 % (34.0-46.0); HGB 11.4 gm/dL (11.4-16.0); Lymphocytes # (A) 1.4 k/uL (1.0-4.8); Lymphocytes % (A) 24 %; MCV 93.7 fL (80.0-100.0); Mean Platelet Volume 7.8; Monocytes # (A) 0.3 k/uL (0-1.0); Monocytes % (A) 6 %; Neutrophils # (A) 3.8 k/uL (1.3-7.7); Neutrophils % (A) 66 %; Platelet Count 237 k/uL (150-450); RBC 3.79 m/uL (3.80-5.40); RDW 13.1 % (11.5-15.5); WBC 5.7 k/uL (3.8-10.6)
== END | disposition home or self-care (01) ==
LOC: LABPAT 13:46
PROVIDERS: ATTEND Obstetrics & Gynecology Obstetrics
DX: Z01.818 Encounter for other preprocedural examination (principal); I10 Essential (primary) hypertension; I49.1 Atrial premature depolarization; N84.0 Polyp of corpus uteri
CPT/HCPCS: 85025; 93005

== ENCOUNTER → 2021-04-20 | Outpatient (CLI) | payer MEDICARE ==
--- NOTE | 2021-04-20 13:40 | BD ---
EXAMINATION TYPE: Axial Bone Density DATE OF EXAM: 04/20/2021 COMPARISON: 10.07.2015 CLINICAL HISTORY: 71 YR OLD FEMALE.....ICD-10 CODE: Z78.0 POST MENOPAUSAL Height: 62 Weight: 160 FRAX RISK QUESTIONS: NOTHING TO NOTE HERE RISK FACTORS HISTORY OF: Postmenopausal woman: YES, AT ABOUT AGE 49 YRS OLD Lost more than 2 inches in height since high school: YES Hyperparathyroidism: NO Adrenal Insufficiency: NO MEDICATIONS: Additional Medications: HX OF CHEMO TREATMENTS AT AGE 48YRS OLD, BILAT BREAST CA, BP MEDS, REFLEX MED S, STATIN FOR CHOLESTEROL, VIT D, Additional History: HX OF BILAT BREAST CANCER, CHEMO TREATMENTS, EXAM MEASUREMENTS: Bone mineral densitometry was performed using the [employer] System. Bone mineral density as measured about the Lumbar spine is: ----- L1-L4(G/cm2): 1.203 T Score Values are as follows: ----- L1: -0.5 ----- L2: -0.7 ----- L3: -0.9 ----- L4: 2.4 ----- L1-L4: 0.2 Bone mineral density has: Decreased -14.3% since study of: 10.07.2015 Bone mineral density about the R hip (g/cm2): 1.039 Bone mineral density about the L hip (g/cm2): 1.034 T Score values are as follows: -----R Neck: -0.4 -----L Neck: -1.0 -----R Total: 0.2 -----L Total: 0.2 Bone mineral density has: Decreased -5.6% since study of: 10.07.2015 FRAX%s; THERE IS A 13.9% CHANCE FOR A MAJOR OSTEOPOROTIC FX AND A 1.4% FOR HIP.....PROBABILITY FO R FX IN 10 YRS TIME IMPRESSION: No evidence for osteoporosis or osteopenia NOTE: T-SCORE=SD OF THE YOUNG ADULT MEAN.
== END | disposition home or self-care (01) ==
LOC: RADBDWWP 09:53
PROVIDERS: ATTEND Family Medicine
DX: M85.852 Other specified disorders of bone density and structure, left thigh (principal); Z85.3 Personal history of malignant neoplasm of breast; Z78.0 Asymptomatic menopausal state
CPT/HCPCS: 77080

== ENCOUNTER 2021-04-21 08:40 | Day surgery (SDC) | payer MEDICARE ==
[2021-04-13 14:56] VITALS: BMI 28.3
[~2021-04-21 08:40] MED LIST changes: +DEXAMETHASONE SOD PHOSPHATE 4 MG/ML 1 ML VIAL IV ONE; +HYDROmorphone 0.5 MG/0.5 ML SYRINGE IVP PRN; +LIDOCAINE 1% (10MG/ML) FOR IV START INTRADERMA PRN; +ONDANSETRON 4 MG/2 ML VIAL IVP ONE; +Pre Op ABX Message 1 EACH MISC MISCELLANE ONE
--- NOTE | 2021-04-21 10:08 | P.HPOB ---
History of Present Illness H&P Date: 04/21/21 Chief Complaint: endometrial polyp this is a 71-year-old female that presents for evaluation of the pelvis, ultrasound revealing a uterus small, postmenopausal in size with a endometrial polyp. Left ovary was visualized in addition with a simple paraovarian cyst. Review of Systems Constitutional: Denies chills, Denies fatigue, Denies fever Ears, nose, mouth and throat: Denies headache Cardiovascular: Denies leg edema Respiratory: Denies dyspnea Genitourinary: Denies Past Medical History Past Medical History: Cancer, GERD/Reflux, Hyperlipidemia, Hypertension Additional Past Medical History / Comment(s): BREAST CANCER WITH CHEMO (1998), HX OF POLYPS , DIVERTICULOSIS, HEART MURMUR (HAS "LEAKY VALVE-BEING WATCHED") History of Any Multi-Drug Resistant Organisms: None Reported Past Surgical History: Breast Surgery Additional Past Surgical History / Comment(s): TRINA MASTECTOMY, BREAST RECONSTRUCTION, PARATHYROID SX, COLONOSCOPY, BILAT CATARACTS REMOVED WITH LENS IMPLANTS Past Anesthesia/Blood Transfusion Reactions: Postoperative Nausea & Vomiting (PONV) Past Psychological History: No Psychological Hx Reported Smoking Status: Never smoker Past Alcohol Use History: Occasional Past Drug Use History: None Reported - Past Family History Mother Family Medical History: No Reported History Additional Family Medical History / Comment(s): colon cancer Sister(s) Family Medical History: Myocardial Infarction ([place]) Additional Family Medical History / Comment(s): post-op knee surgery Medications and Allergies Home Medications Medication Instructions Recorded Confirmed Type Benazepril [Lotensin] 10 mg PO DAILY 03/29/14 04/13/21 History Simvastatin [Zocor] 20 mg PO HS 03/29/14 04/13/21 History Omeprazole [PriLOSEC] 20 mg PO AC-SUPPER 11/30/19 04/13/21 History Spironolactone 50 mg PO Q2D 04/13/21 04/13/21 History Allergies Allergy/AdvReac Type Severity Reaction Status Date / Time nitrofurantoin Allergy Unknown Rash/Hives Verified 04/13/21 14:49 macrocrystalline [From Macrodantin] MYCIN ANTIBIOTIC Allergy Unknown Unknown Uncoded 04/13/21 14:49 Childhood Exam Osteopathic Statement: *. No significant issues noted on an osteopathic structural exam other than those noted in the History and Physical/Consult. Vital Signs Temp Pulse Resp BP Pulse Ox 04/21/21 08:58 97.7 F 45 L 20 142/66 98 Intake and Output 04/20/21 04/21/21 04/21/21 22:59 06:59 14:59 Other: Weight 72.8 kg targeted physical exam is performed in this date in general this a well- nourished well-developed non female in no acute distress, breathing is nonlabored, heart has a regular rate and rhythm, abdomen is soft and nontender, vaginal exam is deferred Assessment and Plan (1) Endometrial polyp Current Visit: Yes Status: Acute Code(s): N84.0 - POLYP OF CORPUS UTERI SNOMED Code(s): 76392499 Plan: 71-year-old female with known endometrial polyp, presents for hysteroscopy, dilation and curettage. Patient is counseled on surgery, postop care is reviewed. Patient states understanding and wishes to proceed.
[2021-04-21] MEDS ORDERED: PROPOFOL 10 MG/ML 20 ML VIAL IV ONE (10:09)
[2021-04-21] MEDS ORDERED: MIDAZOLAM 2 MG/2 ML VIAL ONE (10:09)
[2021-04-21] MEDS ORDERED: KETOROLAC 15 MG/ML 1 ML VIAL ONE (10:09)
[2021-04-21] MEDS ORDERED: fentaNYL (PF) 50 MCG/ML 2 ML AMP ONE (10:09)
[2021-04-21] MEDS ORDERED: LIDOCAINE 1% INJ 10MG/ML (20 ML MDV) ONE (10:09)
--- NOTE | 2021-04-21 10:40 | P.OP ---
Date of Procedure: 04/21/21 Preoperative Diagnosis: Endometrial polyp Postoperative Diagnosis: Same Procedure(s) Performed: Hysteroscopy, dilation and curettage Anesthesia: MAC Surgeon: Preethi Sanabria Estimated Blood Loss (ml): 5 IV fluids (ml): 300 Urine output (ml): 50 Pathology: other (Endometrial curettings) Condition: stable Disposition: PACU Indications for Procedure: Thickened endometrial lining with endometrial polyp Operative Findings: Endometrial polyp otherwise normal-appearing endometrial cavity Description of Procedure: Patient was taken back to the operating suite where general anesthesia was obtained without difficulty by the anesthesia department. She then prepped and draped in normal sterile fashion in the dorsal lithotomy position. A red rubber catheter was used to drain the bladder clear yellow urine. A weighted speculum was placed in the posterior vaginal vault, the anterior lip of the cervix is visualized and grasped with single-tooth tenaculum. The cervix was then s erially dilated and a hysteroscope was placed through the cervix and toward the endometrial cavity. The above-noted findings are visualized. Pictures are taken and the hysteroscope was removed. A sharp curettage was performed until gritty texture was noted in all 4 quadrants of the endometrial cavity. The specimen was sent to pathology for analysis. All instruments removed from the patient's vaginal vault the single-tooth tenaculum was taken off of the anterior lip of the cervix hemostasis was appreciated. All counts are noted be correct 2. Patient is taken to the recovery room awake in stable condition.
[2021-04-21 10:54] VITALS: TEMP 97.1
[2021-04-21 11:53] VITALS: BP 104/69; PULSE 57; RESP 18
== END 2021-04-21 12:15 | disposition home or self-care (01) ==
LOC: OR 08:40
PROVIDERS: ATTEND Obstetrics & Gynecology Obstetrics
DX: N84.0 Polyp of corpus uteri (principal); I10 Essential (primary) hypertension; E78.5 Hyperlipidemia, unspecified; K21.9 Gastro-esophageal reflux disease without esophagitis; N83.292 Other ovarian cyst, left side; Z13.820 Encounter for screening for osteoporosis; Z82.49 Family history of ischemic heart disease and other diseases of the circulatory system; Z85.3 Personal history of malignant neoplasm of breast; Z88.1 Allergy status to other antibiotic agents; Z90.13 Acquired absence of bilateral breasts and nipples
CPT/HCPCS: 58558; J2250; J1100; J2405; J2001; J3010; J1885; J2704; 88305

== ENCOUNTER → 2021-05-29 | Outpatient (CLI) | payer MEDICARE ==
--- NOTE | 2021-06-01 10:03 | MM ---
Reason for exam: additional evaluation requested from prior study. Last mammogram was performed 1 year and 1 month ago. History: Patient is postmenopausal, has history of breast cancer at age 49, and had first child at age 31. Family history of breast cancer in maternal aunt at age 60. Malignant excisional biopsy of the left breast, January 23, 1999. Malignant excisional biopsy of the right breast, January 23, 1999. Mastectomy of both breasts, 1998. TRAM Reconstruction, 1998. Excisional biopsy of the right breast. Chemotherapy. Taking antineoplastic for 5 years 8 months beginning at age 51. Took other hormone for 5 years beginning at age 50. Physical Findings: Nurse did not find any significant physical abnormalities on exam. MG Diagnostic Mammo w CAD TRINA Bilateral CC and MLO view(s) were taken. Prior study comparison: May 01, 2020, bilateral MG 3d diag mammo w/cad TRINA. February 19, 2019, bilateral MG 3d diag mammo w/cad TRINA. There are scattered fibroglandular densities. Finding: There is stable architectural distortion consistent with known surgical changes. There is no discrete abnormality. These results were verbally communicated with the patient and result sheet given to the patient on 05/29/21. ASSESSMENT: Negative, BI-RAD 1 RECOMMENDATION: Clinical management of both breasts. Manage patient on a clinical basis.
== END | disposition home or self-care (01) ==
LOC: RADMAMWWP 14:17
PROVIDERS: ATTEND Internal Medicine Hematology & Oncology
DX: N64.89 Other specified disorders of breast (principal); Z85.3 Personal history of malignant neoplasm of breast; Z78.0 Asymptomatic menopausal state; Z80.3 Family history of malignant neoplasm of breast
CPT/HCPCS: 77066

== ENCOUNTER → 2022-03-17 | Outpatient (CLI) | payer MEDICARE ==
[2022-03-17 14:44] LABS: Basophils # (A) 0.07 X 10*3/uL (0.00-0.10); Basophils % (A) 1.4 %; Eosinophils # (A) 0.13 X 10*3/uL (0.04-0.35); Eosinophils % (A) 2.5 %; HCT 39.2 % (37.2-46.3); HGB 12.8 g/dL (12.0-15.0); Immature Grans, Automated 0.4 %; Lymphocytes # (A) 1.35 X 10*3/uL (0.90-5.00); Lymphocytes % (A) 26.3 %; MCH 29.4 pg (27.0-32.0); MCHC 32.7 g/dL (32.0-37.0); MCV 89.9 fL (80.0-97.0); Mean Platelet Volume 10.1 fL (9.5-12.2); Monocytes # (A) 0.37 X 10*3/uL (0.20-1.00); Monocytes % (A) 7.2 %; NRBC Per 100 WBC 0 /100 WBCS (0.0-0.0); Neutrophils # (A) 3.19 X 10*3/uL (1.80-7.70); Neutrophils % (A) 62.2 %; Platelet Count 199 X 10*3/uL (140-440); RBC 4.36 X 10*6/uL (4.10-5.20); RDW 13.9 % (11.5-14.5); WBC 5.13 X 10*3/uL (4.50-10.00)
[2022-03-17 15:26] LABS: ALT 28 U/L (8-44); AST 26 U/L (13-35); African American GFR (CKD) 56.8 (60.0-200.0); Albumin 4.6 g/dL (3.8-4.9); Albumin/Globulin Ratio 2.23 (1.60-3.17); Alkaline Phosphatase 71 U/L (41-126); BUN/Creat Ratio 26.16 Ratio (12.00-20.00); Blood Urea Nitrogen 29.3 mg/dL (9.0-27.0); Calcium 10.2 mg/dL (8.7-10.3); Carbon Dioxide 23.2 mmol/L (20.0-27.5); Chloride 108 mmol/L (96-109); Chol/HDL Ratio 2.81 Ratio; Globulin 2.1 g/dL (1.6-3.3); Glucose 99 mg/dL (70-110); LDL Cholesterol,Calculated 67.4 mg/dL (0.0-131.0); Potassium 4.2 mmol/L (3.5-5.5); Sodium 144 mmol/L (135-145); Total Protein 6.6 g/dL (6.2-8.2)
== END | disposition home or self-care (01) ==
LOC: LABWHC1 11:01
PROVIDERS: ATTEND Family Medicine
DX: E78.5 Hyperlipidemia, unspecified (principal); E21.5 Disorder of parathyroid gland, unspecified
CPT/HCPCS: 36415; 80053; 80061; 84443; 85025

== ENCOUNTER 2022-04-27 11:30 | Day surgery (SDC) | payer MEDICARE ==
[~2022-04-27 11:30] MED LIST changes: -DEXAMETHASONE SOD PHOSPHATE 4 MG/ML 1 ML VIAL IV ONE; -HYDROmorphone 0.5 MG/0.5 ML SYRINGE IVP PRN; -ONDANSETRON 4 MG/2 ML VIAL IVP ONE; -Pre Op ABX Message 1 EACH MISC MISCELLANE ONE
[2022-04-27 12:17] VITALS: TEMP 97
[2022-04-27] MEDS ORDERED: LIDOCAINE 2% INJ 20 MG/ML (2 ML VIAL) ONE (12:41)
[2022-04-27] MEDS ORDERED: PROPOFOL 10 MG/ML 20 ML VIAL IV ONE (12:41)
--- NOTE | 2022-04-27 12:58 | P.GSHP ---
History of Present Illness H&P Date: 04/27/22 Chief Complaint: Dysphagia 72-year-old female with complaints of intermittent dysphagia. History of previous Schatzki's ring requiring dilation 4-5 years ago. Symptoms mostly with solid foods in particular meats. Takes omeprazole daily. Past Medical History Past Medical History: Cancer, GERD/Reflux, Hyperlipidemia, Hypertension Additional Past Medical History / Comment(s): BREAST CANCER WITH CHEMO (1998), HX OF POLYPS , DIVERTICULOSIS, DIARRHEA, mitral valve regurg being watched. lower back arthritis . pt states she feels like something is tensing up at the bottom of her throat when she swallows. she has recently restarted her prilosec. History of Any Multi-Drug Resistant Organisms: None Reported Past Surgical History: Breast Surgery Additional Past Surgical History / Comment(s): TRINA MASTECTOMY, BREAST RECONSTRUCTION, COLONOSCOPY, trina cataract removal with lens placement. parathyroidectomy 2017, had prior EGD with dilation Past Anesthesia/Blood Transfusion Reactions: Postoperative Nausea & Vomiting (PONV) Additional Past Anesthesia/Blood Transfusion Reaction / Comment(s): blood transfusions long ago - no problems. Smoking Status: Never smoker - Past Family History Mother Family Medical History: No Reported History, Myocardial Infarction (CT) Additional Family Medical History / Comment(s): colon cancer, alzheimer, of heart attack Sister(s) Family Medical History: Myocardial Infarction (CT) Additional Family Medical History / Comment(s): post-op knee surgery ? embolism Medications and Allergies Home Medications Medication Instructions Recorded Confirmed Type Benazepril [Lotensin] 10 mg PO HS 03/29/14 04/27/22 History Simvastatin [Zocor] 20 mg PO HS 03/29/14 04/27/22 History Omeprazole [PriLOSEC] 20 mg PO AC-SUPPER 11/30/19 04/27/22 History Calcium Carbonate [Calcium] 1,200 mg PO DAILY 04/22/22 04/27/22 History Unk Nutrafol 4 tab PO DAILY 04/22/22 04/27/22 History Allergies Allergy/AdvReac Type Severity Reaction Status Date / Time nitrofurantoin Allergy Unknown Rash/Hives Verified 04/27/22 12:13 macrocrystalline [From Macrodantin] MYCIN ANTIBIOTIC Allergy Unknown Unknown Uncoded 04/27/22 12:13 Childhood Surgical - Exam Vital Signs Temp Pulse Resp BP Pulse Ox 97.0 F L 54 L 18 167/79 98 04/27/22 12:12 04/27/22 12:12 04/27/22 12:12 04/27/22 12:12 04/27/22 12:12 Physical exam: General: Well-developed, well-nourished HEENT: Normocephalic, sclerae nonicteric Abdomen: Nontender, nondistended Extremities: No edema Neuro: Alert and oriented Assessment and Plan (1) Dysphagia Narrative/Plan: Will proceed with EGD and possible dilation Current Visit: Yes Status: Acute Code(s): R13.10 - DYSPHAGIA, UNSPECIFIED SNOMED Code(s): 02266836
--- NOTE | 2022-04-27 13:00 | P.PCN ---
Date of Procedure: 04/27/22 Procedure(s) Performed: Preoperative Dx: Dysphagia Postoperative Dx: Small hiatal hernia, Schatzki's ring Procedure: EGD with dilation Anesthesia: Sedation Endoscopist: Dr. Corea Specimens: None Endoscopic Procedure: The patient was on the endoscopy table in the left decubitus position. The Olympus gastroscope was inserted into the oropharynx and passed under direct visualization to the region of the third portion of the duodenum. From that point the scope was slowly withdrawn inspecting all surface s carefully. There were no neoplastic inflammatory or polypoid lesions throughout the duodenum. The pylorus was widely patent. The stomach was carefully inspected. There was no significant inflammatory changes. Retroflexion revealed a small sliding hiatal hernia. At the GE junction there was slight narrowing consistent with Schatzki's ring formation. The 15-18 mm balloon was utilized and pressure was held at each size for 1 minute duration. Mid and proximal esophagus were free of abnormalities. The patient was then taken to the recovery room in stable condition per anesthesia guidelines. Recommendations: Continue antiacid therapy. Gradually resume normal diet. If symptoms of dysphagia persist consider manometry.
[2022-04-27 13:14] VITALS: BP 118/76; PULSE 61; RESP 18
== END 2022-04-27 13:32 | disposition home or self-care (01) ==
LOC: ORWHC2ENDO 11:30
PROVIDERS: ATTEND Surgery
DX: K22.2 Esophageal obstruction (principal); R13.19 Other dysphagia; Z87.19 Personal history of other diseases of the digestive system; E78.5 Hyperlipidemia, unspecified; I10 Essential (primary) hypertension; K21.9 Gastro-esophageal reflux disease without esophagitis; K44.9 Diaphragmatic hernia without obstruction or gangrene; Z82.49 Family history of ischemic heart disease and other diseases of the circulatory system; Z85.3 Personal history of malignant neoplasm of breast; Z88.1 Allergy status to other antibiotic agents
CPT/HCPCS: 43249; J2704; J2001; C1726

== ENCOUNTER → 2022-05-26 | Outpatient (CLI) | payer MEDICARE ==
--- NOTE | 2022-05-27 07:38 | CA ---
Transthoracic Echo Report Name: Sonam Monterroso Age: 72 Gender: F : 1950 Exam Date: 05/26/2022 15:07 Exam Location: [facility] Ht (in): 62 Wt (lb): 169 Ordering Physician: Imelda Conklin MD Attending/Referring Phys: Property Worker Nasima Anand RDCS Procedure CPT: Indications: I34.0 Cardiac Hx: Technical Quality: Good Contrast 1: Total Dose (mL): Contrast 2: Total Dose (mL): MEASUREMENTS (Male / Female) Normal Values 2D ECHO LV Diastolic Diameter PLAX 5.5 cm 4.2 - 5.9 / 3.9 - 5.3 cm LV Systolic Diameter PLAX 3.9 cm IVS Diastolic Thickness 0.9 cm 0.6 - 1.0 / 0.6 - 0.9 cm LVPW Diastolic Thickness 1.2 cm 0.6 - 1.0 / 0.6 - 0.9 cm LV Relative Wall Thickness 0.4 RV Internal Dim ED PLAX 3.9 cm LA Systolic Diameter LX 3.8 cm 3.0 - 4.0 / 2.7 - 3.8 cm LA Volume 43.5 cm??? 18 - 58 / 22 - 52 cm??? M-MODE Aortic Root Diameter MM 3.0 cm LA Systolic Diameter MM 3.7 cm LA Ao Ratio MM 1.2 MV E Point Septal Separation 0.6 cm AV Cusp Separation MM 1.6 cm DOPPLER MV Area PHT 2.6 cm??? Mitral E Point Velocity 49.8 cm/s Mitral A Point Velocity 79.7 cm/s Mitral E to A Ratio 0.6 MV Deceleration Time 289.7 ms MV E' Velocity 4.4 cm/s Mitral E to MV E' Ratio 11.3 FINDINGS Left Ventricle Mildly increased posterior wall thickness. Mildly increased left ventricular diastolic diameter. Left ventricular ejection fraction is estimated at 50%. Right Ventricle Normal right ventricular size and function. Right ventricular systolic pressure within normal limits. Right Atrium Normal right atrial size. Left Atrium Left atrial dilatation. Mitral Valve Prolapse of the posterior mitral valve leaflet.mitral valve thickened. Moderate mitral regurgitation. Aortic Valve Trileaflet aortic valve. Aortic valve sclerosis. Trileaflet aortic valve. Tricuspid Valve Structurally normal tricuspid valve. Mild tricuspid regurgitation. Pulmonic Valve Structurally normal pulmonic valve. Pericardium Echo free space anterior to the right ventricle likely represents a fat pad. Aorta Normal size aortic root and proximal ascending aorta. CONCLUSIONS Left ventricular size is at upper limits of normal with fair systolic function. There is nonspecific thickening of mitral valve leaflets with some redundancy. The posterior mitral leaflet demonstrative some prolapse. Mitral regurgitation is moderate and eccentric. Left atrium is enlarged. Mild tricuspid insufficiency. Right-sided pressures are not well quantified. Probably normal. No pericardial effusion. Probable fat pad anteriorly. Previewed by: Dr. Chandrika Velez MD (Electronically Signed) Final Date: 27 May 2022 07:37
== END | disposition home or self-care (01) ==
LOC: RADECHMAIN 14:59
PROVIDERS: ATTEND Family Medicine
DX: I08.1 Rheumatic disorders of both mitral and tricuspid valves (principal)
CPT/HCPCS: 93306

== ENCOUNTER → 2022-05-31 | Outpatient (CLI) | payer MEDICARE ==
--- NOTE | 2022-05-31 10:44 | MM ---
Reason for Exam: Hx of breast cancer, mastectomy. Last screening mammogram was performed 12 month(s) ago. Patient History: Menarche at age 12. First Full-Term at age 31. Late child-bearing (after 30). Postmenopausal. Breast cancer, bilateral, age 49. 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 1998, Bilateral Mastectomy. Excisional Biopsy on the Right side. 01/23/1999, Malignant Excisional Biopsy on the right side. 01/23/1999, Malignant Excisional Biopsy on the left side. Chemotherapy. 1998, TRAM Reconstruction. Maternal aunt had breast cancer, age 60. Prior Study Comparison: 02/19/2019 Bilateral Diagnostic Mammogram, [facility]. 05/01/2020 Bilateral Diagnostic Mammogram, [facility]. 05/29/2021 Bilateral Diagnostic Mammogram, [facility]. Tissue Density: The breast tissue is almost entirely fat. Findings: Analyzed By CAD. No mass, distortion or suspicious microcalcifications. Overall Assessment: Negative, BI-RAD 1 Management: Diagnostic Mammogram of both breasts in 1 year. A clinical breast exam by your physician is recommended on an annual basis and results should be correlated with mammographic findings. This exam should not preclude additional follow-up of suspicious palpable abnormalities. Results were given to the patient verbally at the time of exam. Electronically signed and approved by: Jamaal Pranell M.D. Radiologis
== END | disposition home or self-care (01) ==
LOC: RADMAMWWP 10:18
PROVIDERS: ATTEND Internal Medicine Hematology & Oncology
DX: Z85.3 Personal history of malignant neoplasm of breast (principal); Z78.0 Asymptomatic menopausal state; Z80.3 Family history of malignant neoplasm of breast; Z90.13 Acquired absence of bilateral breasts and nipples
CPT/HCPCS: 77066

== ENCOUNTER → 2023-05-26 | Outpatient (CLI) | payer MEDICARE ==
[2023-05-26 16:20] LABS: Basophils # (A) 0.07 X 10*3/uL (0.00-0.10); Basophils % (A) 1.5 %; Eosinophils # (A) 0.12 X 10*3/uL (0.04-0.35); Eosinophils % (A) 2.5 %; HCT 43.7 % (37.2-46.3); HGB 13.9 g/dL (12.0-15.0); Lymphocytes # (A) 1.25 X 10*3/uL (0.90-5.00); Lymphocytes % (A) 25.9 %; MCH 29.1 pg (27.0-32.0); MCHC 31.8 g/dL (32.0-37.0); MCV 91.6 FL (80.0-97.0); Mean Platelet Volume 10.5 FL (9.5-12.2); Monocytes # (A) 0.37 X 10*3/uL (0.20-1.00); Monocytes % (A) 7.7 %; NRBC Per 100 WBC 0 X 10*3/uL (0.00-0.01); Neutrophils # (A) 2.99 X 10*3/uL (1.80-7.70); Platelet Count 200 X 10*3/uL (140-440); RBC 4.77 X 10*6/uL (4.10-5.20); RDW 13.4 % (11.5-14.5); WBC 4.82 X 10*3/uL (4.50-10.00)
[2023-05-26 16:35] LABS: ALT 19 U/L (8-44); AST 19 U/L (13-35); Albumin 4.4 g/dL (3.8-4.9); Alkaline Phosphatase 74 U/L (41-126); BUN/Creat Ratio 26.17 Ratio (12.00-20.00); Blood Urea Nitrogen 31.4 mg/dL (9.0-27.0); Calcium 10.3 mg/dL (8.7-10.3); Carbon Dioxide 22.3 mmol/L (21.6-31.8); Chloride 109 mmol/L (96-109); Chol/HDL Ratio 2.59 Ratio; Glucose 94 mg/dL (70-110); LDL Cholesterol,Calculated 61.6 mg/dL (0.0-131.0); Potassium 4.4 mmol/L (3.5-5.5); Sodium 143 mmol/L (135-145); Total Protein 6.4 g/dL (6.2-8.2)
== END | disposition home or self-care (01) ==
LOC: LABWHC1 11:27
PROVIDERS: ATTEND Family Medicine
DX: I10 Essential (primary) hypertension (principal); E78.5 Hyperlipidemia, unspecified
CPT/HCPCS: 36415; 80053; 80061; 84443; 85025

== ENCOUNTER → 2023-06-01 | Outpatient (CLI) | payer MEDICARE ==
--- NOTE | 2023-06-01 14:47 | MM ---
Reason for Exam: Hx of breast cancer, conservation therapy. Last screening mammogram was performed 12 month(s) ago. Patient History: Menarche at age 12. First Full-Term at age 31. Late child-bearing (after 30). Postmenopausal. Breast cancer, bilateral, age 49. 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 1998, Bilateral Mastectomy. Excisional Biopsy on the Right side. 01/23/1999, Malignant Excisional Biopsy on the right side. 01/23/1999, Malignant Excisional Biopsy on the left side. Chemotherapy. 1998, TRAM Reconstruction. Maternal aunt had breast cancer, age 60. Prior Study Comparison: 02/19/2019 Bilateral Diagnostic Mammogram, [facility]. 05/01/2020 Bilateral Diagnostic Mammogram, [facility]. 05/29/2021 Bilateral Diagnostic Mammogram, [facility]. 05/31/2022 Bilateral MG diagnostic mammo w CAD TRINA, [facility]. Tissue Density: The breast tissue is almost entirely fat. Findings: Analyzed By CAD. Patient status post bilateral mastectomy. Transplant reconstructions present. Scarring is within the right breast region, stable from comparison. Benign-appearing calcifications are within the left breast region. No significant interval changes. No suspicious groups of microcalcifications, spiculated or lobular masses, architectural distortion or other secondary signs of malignancy are mammographically apparent. Overall Assessment: Negative, BI-RAD 1 Management: Screening Mammogram of both breasts in 1 year. A negative mammogram report should not preclude additional follow up of suspicious palpable abnormalities. Patient should continue monthly self breast exam. A clinical breast exam by your physician is recommended on an annual basis and results should be correlated with mammographic findings. Electronically signed and approved by: Imtiaz Gould D.O. Radiologis
== END | disposition home or self-care (01) ==
LOC: RADMAMWWP 14:16
PROVIDERS: ATTEND Internal Medicine Hematology & Oncology
DX: R92.313 Mammographic fatty tissue density, bilateral breasts (principal); Z85.3 Personal history of malignant neoplasm of breast; Z80.3 Family history of malignant neoplasm of breast; Z78.0 Asymptomatic menopausal state; Z90.13 Acquired absence of bilateral breasts and nipples
CPT/HCPCS: 77066; G0279; 77062

== ENCOUNTER 2023-08-09 09:37 | Day surgery (SDC) | payer MEDICARE ==
[2023-08-04 16:36] VITALS: BMI 31.1
[~2023-08-09 09:37] MED LIST changes: -LACTATED RINGERS 1,000 ML IV SCH; +ONDANSETRON 4 MG/2 ML VIAL IVP PRN
[2023-08-09] MEDS: LACTATED RINGERS 1,000 ML IV SCH (10:24)
[2023-08-09] MEDS ORDERED: PROPOFOL 10 MG/ML 20 ML VIAL IV ONE (10:30)
[2023-08-09 10:36] VITALS: TEMP 97
--- NOTE | 2023-08-09 10:36 | P.GSHP ---
History of Present Illness H&P Date: 08/09/23 Chief Complaint: Colon cancer screening 73-year-old female here for colonoscopy. Last colonoscopy almost 4 years ago. Patient with history of numerous polyps. Some constipation. Otherwise no new complaints. Past Medical History Past Medical History: Cancer, GERD/Reflux, Hyperlipidemia, Hypertension Additional Past Medical History / Comment(s): BREAST CANCER WITH CHEMO (1998), HX OF POLYPS , DIVERTICULOSIS, DIARRHEA, History of Any Multi-Drug Resistant Organisms: None Reported Past Surgical History: Breast Surgery, Orthopedic Surgery Additional Past Surgical History / Comment(s): TRINA MASTECTOMY, BREAST RECONSTRUCTION, PARATHYROID SX, COLONOSCOPY, BILAT CATARACTS REMOVED WITH LENS IMPLANTS, TRIGGER THUMB LT HAND RELEASE, EPIDURAL INJECTION Past Anesthesia/Blood Transfusion Reactions: Postoperative Nausea & Vomiting (PONV) Smoking Status: Never smoker - Past Family History Mother Family Medical History: No Reported History, Myocardial Infarction (DC) Additional Family Medical History / Comment(s): colon cancer, alzheimer, of heart attack Sister(s) Family Medical History: Myocardial Infarction (DC) Additional Family Medical History / Comment(s): post-op knee surgery ? embolism Medications and Allergies Home Medications Medication Instructions Recorded Confirmed Type Benazepril [Lotensin] 10 mg PO BID 03/29/14 08/09/23 History Simvastatin [Zocor] 20 mg PO HS 03/29/14 08/09/23 History Omeprazole [PriLOSEC] 20 mg PO AC-SUPPER 11/30/19 08/09/23 History Calcium Carbonate [Calcium] 600 mg PO BID 04/22/22 08/09/23 History Unk Nutrafol 4 tab PO DAILY 04/22/22 08/09/23 History Ibuprofen [Motrin Ib] 400 mg PO Q8H PRN 08/04/23 08/09/23 History Krill Oil. 90mg 1 cap PO DAILY 08/04/23 History diphenhydrAMINE [Benadryl] 25 mg PO HS PRN 08/04/23 08/09/23 History Allergies Allergy/AdvReac Type Severity Reaction Status Date / Time nitrofurantoin Allergy Unknown Rash/Hives Verified 08/09/23 10:06 macrocrystalline [From Macrodantin] MYCIN ANTIBIOTIC Allergy Unknown Unknown Uncoded 08/09/23 10:06 Childhood Surgical - Exam Vital Signs Temp Pulse Resp BP Pulse Ox 97.0 F L 77 14 158/84 96 08/09/23 10:12 08/09/23 10:12 08/09/23 10:12 08/09/23 10:12 08/09/23 10:12 Physical exam: General: Well-developed, well-nourished HEENT: Normocephalic, sclerae nonicteric Abdomen: Nontender, nondistended Extremities: No edema Neuro: Alert and oriented Assessment and Plan (1) Colon cancer screening Narrative/Plan: Will proceed with colonoscopy at this time. Current Visit: No Status: Acute Code(s): Z12.11 - ENCOUNTER FOR SCREENING FOR MALIGNANT NEOPLASM OF COLON SNOMED Code(s): 884274706
--- NOTE | 2023-08-09 10:47 | P.PCN ---
Date of Procedure: 08/09/23 Procedure(s) Performed: PREOPERATIVE DIAGNOSIS: History of colon polyps POSTOPERATIVE DIAGNOSIS: Diverticulosis PROCEDURE: Colonoscopy ANESTHESIA: MAC SURGEON: Geoff Corea M.D. SPECIMENS: None ENDOSCOPIC PROCEDURE: The patient was placed on the endoscopy table in the left decubitus position. The Olympus colonoscope was inserted into the anus and passed under direct visualization to the base of the cecum. The appendiceal orifice was visualized. From that point the scope was slowly withdrawn insp ecting all surfaces carefully. There were no neoplastic inflammatory or polypoid lesions throughout the cecum, ascending, transverse, descending, sigmoid and rectum. There was mild scattered diverticulosis noted. Digital rectal examination was normal. The patient was taken to the recovery room in stable condition per anesthesia guidelines. RECOMMENDATIONS: Resume diet. Repeat colonoscopy 5 years.
[2023-08-09 11:06] VITALS: BP 102/65; PULSE 68; RESP 16
== END 2023-08-09 11:22 | disposition home or self-care (01) ==
LOC: ORWHC2ENDO 09:37
PROVIDERS: ATTEND Surgery
DX: Z12.11 Encounter for screening for malignant neoplasm of colon (principal); K57.30 Diverticulosis of large intestine without perforation or abscess without bleeding; K21.9 Gastro-esophageal reflux disease without esophagitis; E78.5 Hyperlipidemia, unspecified; I10 Essential (primary) hypertension; Z85.3 Personal history of malignant neoplasm of breast; Z82.49 Family history of ischemic heart disease and other diseases of the circulatory system; Z86.010 Personal history of colon polyps; Z79.899 Other long term (current) drug therapy
CPT/HCPCS: G0121; J2704; 45378

== ENCOUNTER → 2024-05-21 | Outpatient (CLI) | payer MEDICARE ==
[2024-05-21 18:39] LABS: Basophils # (A) 0.13 X 10*3/uL (0.00-0.10); Basophils % (A) 2.1 %; Eosinophils # (A) 0.33 X 10*3/uL (0.04-0.35); Eosinophils % (A) 5.3 %; HCT 45.7 % (37.2-46.3); HGB 14.9 g/dL (12.0-15.0); Lymphocytes % (A) 27.5 %; MCH 28.2 pg (27.0-32.0); MCHC 32.6 g/dL (32.0-37.0); MCV 86.6 FL (80.0-97.0); Mean Platelet Volume 10.1 FL (9.5-12.2); Monocytes # (A) 0.45 X 10*3/uL (0.20-1.00); Monocytes % (A) 7.3 %; NRBC Per 100 WBC 0 X 10*3/uL (0.00-0.01); Neutrophils # (A) 3.55 X 10*3/uL (1.80-7.70); Neutrophils % (A) 57.3 %; Platelet Count 228 X 10*3/uL (140-440); RBC 5.28 X 10*6/uL (4.10-5.20); RDW 13.8 % (11.5-14.5); WBC 6.19 X 10*3/uL (4.50-10.00)
[2024-05-21 18:52] LABS: ALT 23 U/L (8-44); AST 22 U/L (13-35); Albumin 4.5 g/dL (3.8-4.9); Albumin/Globulin Ratio 1.96 Ratio (1.60-3.17); Alkaline Phosphatase 86 U/L (41-126); BUN/Creat Ratio 27.82 Ratio (12.00-20.00); Blood Urea Nitrogen 30.6 mg/dL (9.0-27.0); Calcium 10.3 mg/dL (8.7-10.3); Carbon Dioxide 23.4 mmol/L (21.6-31.8); Chloride 107 mmol/L (96-109); Chol/HDL Ratio 2.85 Ratio; Globulin 2.3 g/dL (1.6-3.3); Glucose 100 mg/dL (70-110); LDL Cholesterol,Calculated 58.9 mg/dL (0.0-131.0); Potassium 4.2 mmol/L (3.5-5.5); Sodium 142 mmol/L (135-145); Total Bilirubin 0.9 mg/dL (0.3-1.2); Total Protein 6.8 g/dL (6.2-8.2)
== END | disposition home or self-care (01) ==
LOC: LABWHC1 13:51
PROVIDERS: ATTEND Family Medicine
DX: E78.5 Hyperlipidemia, unspecified (principal)
CPT/HCPCS: 36415; 80053; 80061; 84443; 85025

== ENCOUNTER → 2024-06-04 | Outpatient (CLI) | payer MEDICARE ==
--- NOTE | 2024-06-04 13:18 | MM ---
Reason for Exam: Screening (asymptomatic). Last screening mammogram was performed 12 month(s) ago. Patient History: Menarche at age 12. First Full-Term at age 31. Late child-bearing (after 30). Postmenopausal. Breast cancer, bilateral, age 49. 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 1998, Bilateral Mastectomy. Excisional Biopsy on the Right side. 01/23/1999, Malignant Excisional Biopsy on the right side. 01/23/1999, Malignant Excisional Biopsy on the left side. Chemotherapy. 1998, TRAM Reconstruction. Maternal aunt had breast cancer, age 60. Prior Study Comparison: 05/29/2021 Bilateral Diagnostic Mammogram, [facility]. 05/31/2022 Bilateral MG diagnostic mammo w CAD TRINA, [facility]. 06/01/2023 Bilateral MG 3D diag mammo w/cad TRINA, [facility]. Tissue Density: The breasts are almost entirely fatty. Findings: Analyzed By CAD. Patient reported history of transverse rectus abdominus myocutaneous . No suspicious masses. No septations. No breast tissue identified. Overall Assessment: Negative, BI-RAD 1 Management: Screening Mammogram of both breasts in [address] [facility] will attempt to contact patient to return for supplemental views and ultrasound if indicated. Patient should continue monthly self-breast exams. A clinical breast exam by your physician is recommended on an annual basis. This exam should not preclude additional follow-up of suspicious palpable abnormalities. Note on Nicolle scores and lifetime risk: 1. A Nicolle score greater than 3% is considered moderate risk. If this is the case, consider specialist referral to assess eligibility for a risk reducing agent. 2. If overall lifetime risk for the development of breast cancer is 20% or higher, the patient may qualify for future screening with alternating mammogram and breast MRI. [facility], , 06/04/2024 1:14 PM. Electronically signed and approved by: Deondre King DO
== END | disposition home or self-care (01) ==
LOC: RADMAMWWP 12:25
PROVIDERS: ATTEND Internal Medicine Hematology & Oncology
DX: Z12.31 Encounter for screening mammogram for malignant neoplasm of breast (principal); Z78.0 Asymptomatic menopausal state; Z85.3 Personal history of malignant neoplasm of breast; Z80.3 Family history of malignant neoplasm of breast; R92.313 Mammographic fatty tissue density, bilateral breasts
CPT/HCPCS: 77063; 77067

== ENCOUNTER 2024-12-21 13:41 | Day surgery (SDC) | payer MEDICARE ==
[2024-12-20 13:07] VITALS: BMI 30.9
[2024-12-21] MEDS: IV FLUID CONTINUATION 1,000 ML IV ONE ×2 (14:50→15:50)
[2024-12-21 15:01] VITALS: RESP 16; TEMP 96.7
[2024-12-21] MEDS: LACTATED RINGERS 1,000 ML IV SCH (15:09)
[2024-12-21] MEDS ORDERED: PROPOFOL 10 MG/ML 20 ML VIAL IV ONE (15:51)
--- NOTE | 2024-12-21 16:02 | P.PCN ---
Date of Procedure: 12/21/24 Procedure(s) Performed: BRIEF HISTORY: Patient is a 74-year-old, pleasant, white female scheduled for an upper endoscopy as a part evaluation of intermittent dysphagia to solids. PROCEDURE PERFORMED: Esophagogastroduodenoscopy with balloon dilation. PREOPERATIVE DIAGNOSIS: Intermittent dysphagia to solids. IV sedation per anesthesia. PROCEDURE: After informed consent was obtained, the patient was brought into the endoscopy unit. IV sedation was administered by Anesthesia under continuous monitoring. Initially the Olympus GIF-140 video endoscope was inserted into the mouth. Esophagus intubated without any difficulty. It was gradually advanced into the stomach and duodenum and carefully examined. The bulb and the second part of the duodenum appeared normal. The scope at this time was withdrawn to the stomach, adequately insufflated with air, and upon careful examination, mucosa of the antrum, body, cardia and the fundus appeared normal. The scope was then withdrawn into the esophagus. Small hiatal hernia noted. The GE junction was located at 39 cm from the incisors. The distal esophageal Schatzki's ring identified and this was dilated using 18 mm TTS balloon for 30 seconds. There was some oozing identified at the site of dilation with a small mucosal tear and hence further dilation was not performed. The rest of the esophagus appeared normal. There were no erosions or ulcerations seen and the patient tolerated the procedure well. IMPRESSION: 1. Distal esophageal Schatzki's ring status post balloon dilation using 18 mm TTS balloon. 2. Small hiatal hernia. RECOMMENDATIONS: The findings of this examination were discussed with the patient as well as her family. She was advised to be on clear liquids. Continue with omeprazole 20 mg daily and follow antireflux measures. Follow-up in the office in 6 weeks..
[2024-12-21 16:29] VITALS: BP 116/63; PULSE 55
== END 2024-12-21 16:44 | disposition home or self-care (01) ==
LOC: ORWHC2ENDO 13:41
PROVIDERS: ATTEND Internal Medicine Gastroenterology
DX: K22.2 Esophageal obstruction (principal); K21.9 Gastro-esophageal reflux disease without esophagitis; K44.9 Diaphragmatic hernia without obstruction or gangrene; K91.61 Intraoperative hemorrhage and hematoma of a digestive system organ or structure complicating a digestive system procedure; I10 Essential (primary) hypertension; E78.5 Hyperlipidemia, unspecified; Z91.89 Other specified personal risk factors, not elsewhere classified; Z79.899 Other long term (current) drug therapy; Z85.3 Personal history of malignant neoplasm of breast; Z88.1 Allergy status to other antibiotic agents
CPT/HCPCS: 43249; J2704; C1726